=== PATIENT | male | born 1940 | race Caucasian/White ===

== ENCOUNTER 2020-09-25 11:13 | Emergency (ER) | payer BC ==
[~2020-09-25] VITALS: Ht 175.3 cm; Wt 74.8 kg
[~2020-09-25 11:13] MED LIST: GLIP5TAB26 PO
[2020-09-25 11:26] VITALS: BP_SYST 164
[2020-09-25] MEDS ORDERED: IBUPROFEN 600 MG TABLET PO ONE (12:45)
[2020-09-25] MEDS ORDERED: ACETAMINOPHEN 500 MG TABLET PO ONE (12:45)
== END 2020-09-25 12:45 | disposition left against medical advice (07) ==
LOC: SED 11:13
DX: M54.2 Cervicalgia (principal)
CPT/HCPCS: 99281

== ENCOUNTER 2023-07-02 22:33 | Emergency (ER) | payer BC ==
[~2023-07-02] VITALS: Ht 175.3 cm; Wt 76.2 kg
[2023-07-02 22:42] VITALS: BP_SYST 127; PULSE 63; RESP 20; TEMP 97.5; O2SAT 97
[2023-07-02] MEDS ORDERED: LIDOCAINE 1% 10 MG/ML, 20 ML MDV INJ ONE (23:00)
[2023-07-02] MEDS ORDERED: DIPHTH,PERTUSS(ACELL),TET VAC 0.5 ML VIAL (Tdap) I.M. ONE (23:00)
[2023-07-02] MEDS ORDERED: IBUP-1968 PO (23:13)
[2023-07-02] MEDS ORDERED: CEPH-548 PO (23:13)
[2023-07-02] MEDS ORDERED: BACITRACIN 1 GM OINT TP ONE (23:18)
[2023-07-02 23:53] VITALS: BP_SYST 127; PULSE 63; RESP 20; TEMP 97.5; O2SAT 97
== END 2023-07-02 23:53 | disposition home or self-care (01) ==
LOC: SED 22:33
DX: L02.212 Cutaneous abscess of back [any part, except buttock and flank] (principal); L03.312 Cellulitis of back [any part except buttock and flank]; E11.9 Type 2 diabetes mellitus without complications; Z79.899 Other long term (current) drug therapy
CPT/HCPCS: 99283; 10060; 82962; 90715; 90471; J2001